=== PATIENT | female | born 1995 | race Caucasian/White ===

== ENCOUNTER 2017-02-19 19:11 | Inpatient (IN) | payer OTHER ==
[2017-02-19 19:11] VITALS: BMI 15.4
--- NOTE | 2017-02-19 19:51 | C.PDOC ---
History Of Present Illness A 22 y/o F with a Hx of atrial septal defect that was successfully repaired November 26 at [facility] [place] with no complications, c/o sudden onset chest discomfort with associated lightheadedness, SOB and palpitations that began today. After the surgery she reports she had an episode of chest pain which she did not seek medical attention for. She now had her second episode of chest discomfort. No exacerbating or alleviating factors. Denies fever, chills, abdominal pain, nausea, vomiting, diaphoresis, lower extremity pain, or any other complaints. Time Seen by Provider: 02/19/17 19:21 Chief Complaint (Nursing): Chest Pain History Per: Patient History/Exam Limitations: no limitations Onset/Duration Of Symptoms: Hrs, Sudden Onset Current Symptoms Are (Timing): Still Present Severity: Mild Quality: Other (Discomfort) Modifying Factors: None Exacerbating Factors: None Alleviating Factors: None Recent travel outside of the [place]: No Additional History Per: Patient Past Medical History Reviewed: Historical Data, Nursing Documentation, Vital Signs Vital Signs: Last Vital Signs Temp 98 F 02/19/17 19:17 Pulse 90 02/19/17 19:51 Resp 18 02/19/17 19:17 BP 107/78 02/19/17 19:17 Pulse Ox 100 02/19/17 19:54 - Medical History PMH: Denies: Chronic Kidney Disease Family History: States: Unknown Family Hx - Social History Hx Tobacco Use: No Hx Alcohol Use: No Hx Substance Use: No - Immunization History Hx Tetanus Toxoid Vaccination: Yes Hx Influenza Vaccination: No Hx Pneumococcal Vaccination: No Review Of Systems Except As Marked, All Systems Reviewed And Found Negative. Constitutional: Negative for: Fever, Chills, Sweats Cardiovascular: Positive for: Chest Pain (Discomfort), Palpitations, Light Headedness Respiratory: Positive for: Shortness of Breath Gastrointestinal: Negative for: Nausea, Vomiting, Abdominal Pain Musculoskeletal: Negative for: Leg Pain Physical Exam - Physical Exam Appears: Non-toxic, No Acute Distress Skin: Warm, Dry Head: Atraumatic, Normacephalic Oral Mucosa: Moist Neck: Supple Chest: Symmetrical, No Tenderness Cardiovascular: Rhythm Regular Respiratory: Normal Breath Sounds, No Accessory Muscle Use, No Rales, No Rhonchi , No Wheezing Gastrointestinal/Abdominal: Soft, No Tenderness Extremity: Normal ROM, No Pedal Edema, No Calf Tenderness, Capillary Refill (< 2secs), No Deformity, No Swelling Extremity: Bilateral: Normal Color And Temperature Neurological/Psych: Oriented x3, Normal Speech, Normal Cognition, Other (No focal deficit) Gait: Steady ED Course And Treatment - Laboratory Results Result Diagrams: 02/19/17 19:42 02/19/17 19:42 Lab Interpretation: No Acute Changes ECG: Interpreted By Me ECG Rhythm: Sinus Rhythm (with short PA interval) ECG Interpretation: No Acute Changes O2 Sat by Pulse Oximetry: 100 (RA) Pulse Ox Interpretation: Normal Reevaluation Time: 21:02 Reassessment Condition: Improved - Physician Consult Information Time Consulting Physician Contacted: 21:02 Physician Contacted: Finn Mott Outcome Of Conversation: Patient with history of recent atrial septal defect repair to be admitted on observation for evaluation of chest pain. Medical Decision Making Medical Decision Making: Impression: A 22 y/o F c/o sudden onset chest discomfort with associated lightheadedness and SOB that began today. Hx of atrial septal defect repaired November 26 at [facility] with no complications. Plans: * EKG * Blood work up * IV fluids * Reassess Disposition - Disposition Disposition: HOSPITALIZED Disposition Time: 21:03 Condition: STABLE - POA Present On Arrival: None - Clinical Impression Clinical Impression: Chest pain - Scribe Statement The provider has reviewed the documentation as recorded by the Scribkwabena king All medical record entries made by the Jenniferibkwabena were at my direction and personally dictated by me. I have reviewed the chart and agree that the record accurately reflects my personal performance of the history, physical exam, medical decision making, and the department course for this patient. I have also personally directed, reviewed, and agree with the discharge instructions and disposition.
[2017-02-19 19:52] LABS: BASO % 0.4 % (0.0-2.0); EOS # 0.1 K/uL (0.0-0.7); EOS % 1.7 % (0.0-4.0); HEMOGLOBIN 11.6 g/dL (11.0-16.0); LYMPH % 39.7 % (20.0-40.0); MEAN CELL VOLUME 85.3 fL (81.0-99.0); MEAN CORPUSCULAR HEMOGLOBIN 29.1 pg (27.0-31.0); MEAN CORPUSCULAR HGB CONC 34.1 g/dL (33.0-37.0); MEAN PLATELET VOLUME 8.6 fL (7.2-11.7); MONO # 0.5 K/uL (0.0-0.8); MONO % 7.3 % (0.0-10.0); NEUT # 3.8 K/uL (1.8-7.0); NEUT % 50.9 % (50.0-75.0); NRBC % 0.2 % (0.0-2.0); RBC 3.98 Mil/uL (3.80-5.20); RED CELL DISTRIBUTION WIDTH 13.4 % (11.5-14.5); WHITE BLOOD COUNT 7.4 K/uL (4.8-10.8)
[2017-02-19 20:04] LABS: AST/SGOT 24 U/L (14-36); GFR AFRICAN-AMERICAN > 60; GFR NON-AFRICAN AMERICAN > 60
[2017-02-19 20:05] LABS: ALB/GLOB RATIO 1.6 (1.0-2.1); ALT/SGPT 25 U/L (9-52); BLOOD UREA NITROGEN 16 mg/dL (7-17); CALCIUM 9.3 mg/dl (8.6-10.4)
[2017-02-20 06:17] LABS: CK-MB 0.53 ng/mL (0.0-3.38)
[2017-02-20 07:50] LABS: CK-MB 0.46 ng/mL (0.0-3.38)
--- NOTE | 2017-02-20 07:50 | CP.PCM.CON ---
<Nasir Vieira - Last Filed: 02/20/17 08:59> History of Present Illness - History of Present Illness History of Present Illness: Dr. Nasir Vieira PGY2 Cardiology Note for Dr. Sinha This patient is a 22yo F w/ a PMhx of s/p repair in November 2016 at [facility] who is coming to [facility] after she had right sided chest pain that came and went for one day. She states that she no longer has this chest pain. The chest pain was not associated with any other symptoms, no nausea, vomiting, diarrhea, headache, dizziness. The patient states she ran out of her medicine for 3 days, aspirin 81mg and Plavix 75mg because she has been so busy doing school at [employer]. 12-point review of systems is otherwise negative. Pmhx: ASD s/p repair november 2016 Surgical Hx: endovascular repair ASD in November 2016 at [facility] FamHx: HTN, DM, Asthma Meds: Aspirin 81mg, Plavix 75mg Allergies: None Social: Denies smoking, drinking, or illicit drug use. In [employer] school Review of Systems - EENT Ears: absent: Decreased Hearing Nose/Mouth/Throat: absent: Epistaxis - Cardiovascular Cardiovascular: absent: Acrocyanosis, Chest Pain, Chest Pain at Rest, Chest Pain with Activity, Claudication, Diaphoresis, Dyspnea, Dyspnea on Exertion, Edema, Irregular Heart Rhythm, Pain Radiating to Arm/Neck/Jaw, Leg Edema, Leg Ulcers, Lightheadedness, Orthopnea, Palpitations, Paroxysmal Nocturnal Dyspnea - Respiratory Respiratory: absent: Cough, Dyspnea - Gastrointestinal Gastrointestinal: absent: Abdominal Pain - Musculoskeletal Musculoskeletal: absent: Abnormal Gait, Arthralgias - Integumentary Integumentary: absent: Acne - Neurological Neurological: absent: Abnormal Gait - Psychiatric Psychiatric: absent: Anhedonia - Endocrine Endocrine: absent: Change in Body Appearance, Change in Libido - Hematologic/Lymphatic Hematologic: Easy Bleeding (patient states she has been having bruising on her upper extremities ) Past Patient History - Infectious Disease Hx of Infectious Diseases: None - Past Medical History & Family History Past Medical History?: Yes - Past Social History Smoking Status: Never Smoked - CARDIAC Hx Cardiac Disorders: Yes Other/Comment: HX: EXERTIONAL DYSPENA. HX: ATRIAL SEPTAL DEFECT. Cardiac catherization on November 2016. 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) - HEENT Hx HEENT Problems: No - RENAL Hx Chronic Kidney Disease: No - ENDOCRINE/METABOLIC Hx Endocrine Disorders: No - HEMATOLOGICAL/ONCOLOGICAL Hx Blood Disorders: No - INTEGUMENTARY Hx Dermatological Problems: No - MUSCULOSKELETAL/RHEUMATOLOGICAL Hx Musculoskeletal Disorders: No Hx Falls: No - GASTROINTESTINAL Hx Gastrointestinal Disorders: No - GENITOURINARY/GYNECOLOGICAL Hx Genitourinary Disorders: No - PSYCHIATRIC Hx Substance Use: No - SURGICAL HISTORY Hx Surgeries: Yes Other/Comment: Cardiac Catherization on November 2016 - ANESTHESIA Hx Anesthesia: Yes Hx Anesthesia Reactions: No Hx Malignant Hyperthermia: No Meds Allergies/Adverse Reactions: Allergies Allergy/AdvReac Type Severity Reaction Status Date / Time No Known Allergies Allergy Verified 02/19/17 19:23 - Medications Medications: Current Medications Aspirin (Ecotrin) 81 mg PO DAILY [facility] Last Admin: 02/20/17 00:47 Dose: 81 mg Clopidogrel Bisulfate (Plavix) 75 mg PO DAILY [facility] Last Admin: 02/20/17 00:47 Dose: 75 mg Enoxaparin Sodium (Lovenox) 40 mg SC DAILY [facility] Physical Exam - Constitutional Appears: Well, Non-toxic - Head Exam Head Exam: ATRAUMATIC - Eye Exam Eye Exam: EOMI Pupil Exam: NORMAL ACCOMODATION, PERRL - ENT Exam ENT Exam: Mucous Membranes Moist - Neck Exam Neck exam: Positive for: Full Rom, Normal Inspection. Negative for: Lymphadenopathy - Respiratory Exam Respiratory Exam: Clear to Auscultation Bilateral, NORMAL BREATHING PATTERN. absent: Rales, Rhonchi, Wheezes - Cardiovascular Exam Cardiovascular Exam: REGULAR RHYTHM, +S1, +S2 - GI/Abdominal Exam GI & Abdominal Exam: Normal Bowel Sounds, Soft. absent: Tenderness - Rectal Exam Rectal Exam: Deferred - Extremities Exam Extremities exam: Positive for: full ROM. Negative for: calf tenderness - Back Exam Back exam: NORMAL INSPECTION. absent: CVA tenderness (L), CVA tenderness (R) - Neurological Exam Neurological exam: Alert, Oriented x3 - Psychiatric Exam Psychiatric exam: Normal Affect, Normal Mood - Skin Skin Exam: Warm Results - Vital Signs Recent Vital Signs: Last Vital Signs Temp 98.0 F 02/19/17 23:40 Pulse 79 02/19/17 23:40 Resp 20 02/19/17 23:40 BP 94/62 L 02/19/17 23:40 Pulse Ox 99 02/19/17 23:40 - Labs Result Diagrams: 02/19/17 19:42 02/19/17 19:42 Labs: Laboratory Results - last 24 hr 02/20/17 04:56 Total Creatine Kinase 113 CK-MB (Mass) 0.53 Troponin I, Quant < 0.0120 Assessment & Plan - Assessment and Plan (Free Text) Assessment: This patient is a 22yo F admitted for R Sided Chest pain which has now resolved Right Sided Chest Pain; resolved -ELSA negative to date; ACS very unlikely -D Dimer negative; PE very unlikely ASD s/p repair -patient should continue with aspirin and plavix daily 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 If the echocardiogram is normal the patient should be able to go home. Thank you for this interesting consult. Case Discussed in detail with Dr. Bharath Vieira PGY2 Cardiology Note <Gage Sinha - Last Filed: 02/20/17 09:33> Meds - Medications Medications: Current Medications Aspirin (Ecotrin) 81 mg PO DAILY [facility] Last Admin: 02/20/17 00:47 Dose: 81 mg Clopidogrel Bisulfate (Plavix) 75 mg PO DAILY [facility] Last Admin: 02/20/17 00:47 Dose: 75 mg Enoxaparin Sodium (Lovenox) 40 mg SC DAILY [facility] Results - Vital Signs Recent Vital Signs: Last Vital Signs Temp 98.7 F 02/20/17 07:30 Pulse 79 02/20/17 07:30 Resp 20 02/20/17 07:30 BP 105/60 02/20/17 07:30 Pulse Ox 96 02/20/17 07:30 - Labs Result Diagrams: 02/19/17 19:42 02/19/17 19:42 Labs: Laboratory Results - last 24 hr 02/20/17 02/20/17 04:56 07:15 Total Creatine Kinase 113 128 CK-MB (Mass) 0.53 0.46 Troponin I, Quant < 0.0120 < 0.0120 Attending/Attestation - Attestation I have personally seen and examined this patient.: Yes I have fully participated in the care of the patient.: Yes I have reviewed all pertinent clinical information: Yes Notes (Text): 02/20/17 09:33 s/p asd repair continue plavix asa. D/c with follow up in office stable
--- NOTE | 2017-02-20 08:51 | RAD ---
HISTORY: chest pain COMPARISON: No prior. FINDINGS: LUNGS: Mild venous congestion. Bibasilar breast and nipple shadows. PLEURA: No significant pleural effusion identified, no pneumothorax apparent. CARDIOVASCULAR: Normal. OSSEOUS STRUCTURES: No significant abnormalities. VISUALIZED UPPER ABDOMEN: Normal. OTHER FINDINGS: None. IMPRESSION: Mild venous congestion.
[2017-02-20] MEDS: Enoxaparin 40 mg Syringe SC SCH (10:07)
--- NOTE | 2017-02-20 10:57 | CARD ---
APPROVED REPORT EKG Measurement Heart [id number] <Conclusion> Sinus rhythm with short CO Otherwise normal ECG
--- NOTE | 2017-02-20 18:48 | CP.PCM.HP ---
History of Present Illness - History of Present Illness History of Present Illness: This patient is a 22yo F w/ a PMhx of s/p repair in November [address] [facility] who is coming to [facility] after she had right sided chest pain that came and went for one day. She states that she no longer has this chest pain. The chest pain was not associated with any other symptoms, no nausea, vomiting, diarrhea, headache, dizziness. The patient states she ran out of her medicine for 3 days, aspirin 81mg and Plavix 75mg because she has been so busy doing school at [employer]. Patient denies fever, chills, cough, abd pain, N/V, HOFFMANN's, dyspnea and urinary Smx. Present on Admission - Present on Admission Any Indicators Present on Admission: No History of DVT/PE: No History of Uncontrolled Diabetes: No Urinary Catheter: No Decubitus Ulcer Present: No Review of Systems - Review of Systems All systems: reviewed and no additional remarkable complaints except (As mentioned in HPI) Past Patient History - Infectious Disease Hx of Infectious Diseases: None - Past Medical History & Family History Past Medical History?: Yes - Past Social History Smoking Status: Never Smoked - CARDIAC Hx Cardiac Disorders: Yes Other/Comment: HX: EXERTIONAL DYSPENA. HX: ATRIAL SEPTAL DEFECT. Cardiac catherization on November 2016. 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) - HEENT Hx HEENT Problems: No - RENAL Hx Chronic Kidney Disease: No - ENDOCRINE/METABOLIC Hx Endocrine Disorders: No - HEMATOLOGICAL/ONCOLOGICAL Hx Blood Disorders: No - INTEGUMENTARY Hx Dermatological Problems: No - MUSCULOSKELETAL/RHEUMATOLOGICAL Hx Musculoskeletal Disorders: No Hx Falls: No - GASTROINTESTINAL Hx Gastrointestinal Disorders: No - GENITOURINARY/GYNECOLOGICAL Hx Genitourinary Disorders: No - PSYCHIATRIC Hx Substance Use: No - SURGICAL HISTORY Hx Surgeries: Yes Other/Comment: Cardiac Catherization on November 2016 - ANESTHESIA Hx Anesthesia: Yes Hx Anesthesia Reactions: No Hx Malignant Hyperthermia: No Meds Allergies/Adverse Reactions: Allergies Allergy/AdvReac Type Severity Reaction Status Date / Time No Known Allergies Allergy Verified 02/19/17 19:23 Physical Exam - Head Exam Head Exam: NORMAL INSPECTION - Eye Exam Eye Exam: Normal appearance - ENT Exam ENT Exam: Mucous Membranes Moist - Neck Exam Neck exam: Positive for: Normal Inspection - Respiratory Exam Respiratory Exam: Clear to Auscultation Bilateral, NORMAL BREATHING PATTERN - Cardiovascular Exam Cardiovascular Exam: REGULAR RHYTHM, +S1, +S2 - GI/Abdominal Exam GI & Abdominal Exam: Normal Bowel Sounds, Soft - Extremities Exam Extremities exam: Positive for: normal inspection Results - Vital Signs Recent Vital Signs: Last Vital Signs Temp 98.3 F 02/20/17 16:38 Pulse 93 H 02/20/17 18:28 Resp 20 02/20/17 16:38 BP 91/56 L 02/20/17 18:28 Pulse Ox 100 02/20/17 16:38 - Labs Result Diagrams: 02/19/17 19:42 02/19/17 19:42 Labs: Laboratory Results - last 24 hr 02/20/17 02/20/17 04:56 07:15 Total Creatine Kinase 113 128 CK-MB (Mass) 0.53 0.46 Troponin I, Quant < 0.0120 < 0.0120 Assessment & Plan - Assessment and Plan (Free Text) Assessment: CP Hx of ASD Repair Pt is ruled out for ACS Cardiology consult appreciated Continue ASA and Plavix Family requesting
[2017-02-21] MEDS ORDERED: Lidocaine 4% (Laryng-O-Jet) Kit MM ONE ×2 (10:22→11:09)
[2017-02-21] MEDS ORDERED: Propofol 10 mg/ml Inj (20 ML) ONE ×2 (11:07)
[2017-02-21] MEDS ORDERED: Esmolol 100 mg/10ml Inj IV ONE (11:07)
[2017-02-21] MEDS ORDERED: Midazolam 2 MG/2 ML VIAL ONE (11:08)
--- NOTE | 2017-02-21 12:17 | CP.PCM.PN ---
Subjective - Date & Time of Evaluation Date of Evaluation: 02/21/17 Time of Evaluation: 12:14 - Subjective Subjective: Patient s/p PETERSON 1. Normal LV function 2. ASD closure device in place 3. RV/RA Dilated (Not new) No significant abnormality detected Chest pain likely from Gastrits Start Pepcid 20mg po bid Objective - Vital Signs/Intake and Output Vital Signs (last 24 hours): Temp Pulse Resp BP Pulse Ox 98.2 F 81 16 91/52 L 100 02/21/17 07:05 02/21/17 08:30 02/21/17 07:05 02/21/17 07:05 02/21/17 07:05 Intake and Output: 02/21/17 02/21/17 06:59 18:59 Intake Total 560 Balance 560 - Medications Medications: Current Medications Aspirin (Ecotrin) 81 mg PO DAILY [facility] Last Admin: 02/20/17 10:08 Dose: Not Given Clopidogrel Bisulfate (Plavix) 75 mg PO DAILY [facility] Last Admin: 02/20/17 10:09 Dose: Not Given Enoxaparin Sodium (Lovenox) 40 mg SC DAILY [facility] Last Admin: 02/20/17 10:07 Dose: 40 mg
--- NOTE | 2017-02-21 13:39 | CARD ---
APPROVED REPORT EXAM: Two-dimensional and M-mode echocardiogram with Doppler and color Doppler. Other Information Quality : AverageRhythm : NSR INDICATION Chest Pain ASD REPAIR M-Mode DIMENSIONS RVDd0.81 (2.1-3.2cm)Left Atrium (MM)2.32 (2.5-4.0cm) IVSd0.81 (0.7-1.1cm)Aortic Root2.13 (2.2-3.7cm) LVDd3.72 (4.0-5.6cm)Aortic Cusp Exc.1.38 (1.5-2.0cm) PWd0.75 (0.7-1.1cm)FS (%) 33 % LVDs2.50 (2.0-3.8cm)LVEF (%)62 (>50%) Aortic Valve AoV Peak Cgxbuzsh311.8cm/Cary Peak GR.10mmHgLVOT Peak Erqtxiwj668.0cm/s Mitral Valve MV E Aqcdssoh810.1cm/sMV A Fgqmarft65.2cm/sE/A ratio1.4 TDI E/Lateral E'0.0E/Medial E'0.0 Tricuspid Valve TR Peak Epvtuqvm814ax/sTR Peak Gr.87mfAkGROQ77rxTu LEFT VENTRICLE The left ventricle is normal size. There is normal left ventricular wall thickness. The left ventricular function is normal. The left ventricular ejection fraction is within the normal range. No regional wall motion abnormalities noted. The left ventricular diastolic function is normal. No left ventricle thrombus noted on this study. There is no ventricular septal defect visualized. There is no left ventricular aneurysm. There is no mass noted in the left ventricle. RIGHT VENTRICLE The right ventricle is normal size. There is normal right ventricular wall thickness. The right ventricular systolic function is normal. ATRIA The left atrium size is normal. The right atrium size is normal. There is Amplatz occluder present in the atrail interseptum Appears to be functioning well No residual shunt seen AORTIC VALVE The aortic valve is normal in structure and function. No aortic regurgitation is present. There is no aortic valvular stenosis. There is no aortic valvular vegetation. MITRAL VALVE The mitral valve is normal in structure and function. There is no evidence of mitral valve prolapse. There is no mitral valve stenosis. There is no mitral valve regurgitation noted. TRICUSPID VALVE The tricuspid valve is normal in structure and function. There is mild tricuspid regurgitation. Right ventricular systolic pressure is estimated at less than 30 mmHg. There is no tricuspid valve prolapse or vegetation. There is no tricuspid valve stenosis. PULMONIC VALVE The pulmonary valve is normal in structure and function. There is no pulmonic valvular regurgitation. There is no pulmonic valvular stenosis. GREAT VESSELS The aortic root is normal in size. The ascending aorta is normal in size. The pulmonary artery is normal. The IVC is normal in size and collapses >50% with inspiration. PERICARDIAL EFFUSION The pericardium appears normal. There is no pleural effusion. <Conclusion> The left ventricular function is normal. The left ventricular ejection fraction is within the normal range. No regional wall motion abnormalities noted. There is Amplatz occluder present in the atrail interseptum Appears to be functioning well No residual shunt seen
[2017-02-21] MEDS: Enoxaparin 40 mg Syringe SC SCH (14:01)
--- NOTE | 2017-02-21 15:30 | CP.PCM.PN ---
Subjective - Date & Time of Evaluation Date of Evaluation: 02/21/17 Time of Evaluation: 15:30 Objective - Vital Signs/Intake and Output Vital Signs (last 24 hours): Temp Pulse Resp BP Pulse Ox 98 F 64 18 92/58 L 95 02/21/17 12:40 02/21/17 12:40 02/21/17 12:40 02/21/17 12:40 02/21/17 12:40 Intake and Output: 02/21/17 02/21/17 06:59 18:59 Intake Total 560 Balance 560 - Medications Medications: Current Medications Aspirin (Ecotrin) 81 mg PO DAILY [facility] Last Admin: 02/21/17 14:01 Dose: 81 mg Clopidogrel Bisulfate (Plavix) 75 mg PO DAILY [facility] Last Admin: 02/21/17 14:00 Dose: 75 mg Enoxaparin Sodium (Lovenox) 40 mg SC DAILY [facility] Last Admin: 02/21/17 14:01 Dose: 40 mg Famotidine (Pepcid) 20 mg PO BID [facility]
[2017-02-21] MEDS: Benzocaine/Menthol (Cepacol) Lozenge MT PRN ×2 (16:33→21:59)
[2017-02-21] MEDS ORDERED: Sodium Chloride 0.9% 250 ML IV ONE (23:45)
[2017-02-22] MEDS: Sodium Chloride 0.9% 1,000 ML IV SCH ×2 (00:50→10:15)
[2017-02-22 01:24] LABS: SQUAMOUS EPITHIAL 5 /hpf (0-5); URINE BILIRUBIN NEGATIVE (NEGATIVE); URINE BLOOD 2+ (NEGATIVE); URINE CLARITY Clear (Clear); URINE COLOR Yellow (YELLOW); URINE GLUCOSE (UA) NORMAL (Normal); URINE LEUKOCYTE ESTERASE NEG Leu/uL (Negative); URINE NITRATE NEGATIVE (NEGATIVE); URINE PROTEIN NEGATIVE (NEGATIVE); URINE UROBILINOGEN NORMAL mg/dL (0.2-1.0)
[2017-02-22 07:25] LABS: HEMOGLOBIN 11.1 g/dL (11.0-16.0); MEAN CELL VOLUME 85.3 fL (81.0-99.0); MEAN CORPUSCULAR HGB CONC 32.8 g/dL (33.0-37.0); MEAN PLATELET VOLUME 9.2 fL (7.2-11.7); RBC 3.96 Mil/uL (3.80-5.20); RED CELL DISTRIBUTION WIDTH 12.9 % (11.5-14.5)
[2017-02-22 07:35] LABS: WHITE BLOOD COUNT 16.1 K/uL (4.8-10.8)
[2017-02-22 07:38] LABS: GFR AFRICAN-AMERICAN > 60; GFR NON-AFRICAN AMERICAN > 60
[2017-02-22 07:39] LABS: BLOOD UREA NITROGEN 8 mg/dL (7-17); CALCIUM 8.8 mg/dl (8.6-10.4)
[2017-02-22] MEDS: Enoxaparin 40 mg Syringe SC SCH (10:38)
--- NOTE | 2017-02-22 10:55 | CP.PCM.CON ---
History of Present Illness - History of Present Illness History of Present Illness: Patient seen and evaluated S/P ASD closure device C/O Chest pain Will check PETERSON in am Past Patient History - Infectious Disease Hx of Infectious Diseases: None - Past Medical History & Family History Past Medical History?: Yes - Past Social History Smoking Status: Never Smoked - CARDIAC Hx Cardiac Disorders: Yes Other/Comment: HX: EXERTIONAL DYSPENA. HX: ATRIAL SEPTAL DEFECT. Cardiac catherization on November 2016. 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) - HEENT Hx HEENT Problems: No - RENAL Hx Chronic Kidney Disease: No - ENDOCRINE/METABOLIC Hx Endocrine Disorders: No - HEMATOLOGICAL/ONCOLOGICAL Hx Blood Disorders: No - INTEGUMENTARY Hx Dermatological Problems: No - MUSCULOSKELETAL/RHEUMATOLOGICAL Hx Musculoskeletal Disorders: No Hx Falls: No - GASTROINTESTINAL Hx Gastrointestinal Disorders: No - GENITOURINARY/GYNECOLOGICAL Hx Genitourinary Disorders: No - PSYCHIATRIC Hx Substance Use: No - SURGICAL HISTORY Hx Surgeries: Yes Other/Comment: Cardiac Catherization on November 2016 - ANESTHESIA Hx Anesthesia: Yes Hx Anesthesia Reactions: No Hx Malignant Hyperthermia: No Meds Allergies/Adverse Reactions: Allergies Allergy/AdvReac Type Severity Reaction Status Date / Time No Known Allergies Allergy Verified 02/19/17 19:23 - Medications Medications: Current Medications Acetaminophen (Tylenol 325mg Tab) 650 mg PO Q6 PRN PRN Reason: Temperature Last Admin: 02/22/17 01:16 Dose: 650 mg Aspirin (Ecotrin) 81 mg PO DAILY [facility] Last Admin: 02/22/17 10:38 Dose: 81 mg Benzocaine/Menthol (Cepacol Sore Throat) 1 erika MT Q4 PRN PRN Reason: Sore Throat Last Admin: 02/21/17 21:59 Dose: 1 erika Clopidogrel Bisulfate (Plavix) 75 mg PO DAILY [facility] Last Admin: 02/22/17 10:38 Dose: 75 mg Enoxaparin Sodium (Lovenox) 40 mg SC DAILY [facility] Last Admin: 02/22/17 10:38 Dose: 40 mg Famotidine (Pepcid) 20 mg PO BID [facility] Last Admin: 02/22/17 10:38 Dose: 20 mg Ceftriaxone Sodium 1 gm/ (Sodium Chloride) 100 mls @ 100 mls/hr IVPB Q12H ALEJANDRO Last Admin: 02/22/17 01:17 Dose: 100 mls/hr Results - Vital Signs Recent Vital Signs: Last Vital Signs Temp 98.3 F 02/22/17 08:37 Pulse 80 02/22/17 08:37 Resp 20 02/22/17 08:37 BP 94/59 L 02/22/17 08:37 Pulse Ox 98 02/22/17 08:37 - Labs Result Diagrams: 02/22/17 07:16 02/22/17 07:16 Labs: Laboratory Results - last 24 hr 02/22/17 02/22/17 02/22/17 01:11 07:16 07:16 WBC 16.1 H D RBC 3.96 Hgb 11.1 Hct 33.8 L MCV 85.3 MCH 28.0 MCHC 32.8 L RDW 12.9 Plt Count 159 MPV 9.2 Sodium 139 Potassium 3.9 Chloride 105 Carbon Dioxide 22 Anion Gap 17 BUN 8 Creatinine 0.6 L Est GFR ( Amer) > 60 Est GFR (Non-Af Amer) > 60 Random Glucose 98 Calcium 8.8 Urine Color Yellow Urine Clarity Clear Urine pH 5.0 Ur Specific Mcintire 1.021 Urine Protein Negative Urine Glucose (UA) Normal Urine Ketones Negative Urine Blood 2+ H Urine Nitrate Negative Urine Bilirubin Negative Urine Urobilinogen Normal Ur Leukocyte Esterase Neg Urine WBC (Auto) 5 Urine RBC (Auto) 24 H Ur Squamous Epith Cells 5
--- NOTE | 2017-02-22 13:31 | CP.PCM.PN ---
Subjective - Date & Time of Evaluation Date of Evaluation: 02/22/17 Time of Evaluation: 07:15 Objective - Vital Signs/Intake and Output Vital Signs (last 24 hours): Temp Pulse Resp BP Pulse Ox 98.2 F 96 H 18 93/57 L 100 02/22/17 11:30 02/22/17 12:05 02/22/17 11:30 02/22/17 11:30 02/22/17 11:30 Intake and Output: 02/22/17 02/22/17 06:59 18:59 Intake Total 900 Balance 900 - Medications Medications: Current Medications Acetaminophen (Tylenol 325mg Tab) 650 mg PO Q6 PRN PRN Reason: Temperature Last Admin: 02/22/17 01:16 Dose: 650 mg Aspirin (Ecotrin) 81 mg PO DAILY ON LICENSE OF [facility] Last Admin: 02/22/17 10:38 Dose: 81 mg Benzocaine/Menthol (Cepacol Sore Throat) 1 erika MT Q4 PRN PRN Reason: Sore Throat Last Admin: 02/21/17 21:59 Dose: 1 erika Clopidogrel Bisulfate (Plavix) 75 mg PO DAILY ON LICENSE OF [facility] Last Admin: 02/22/17 10:38 Dose: 75 mg Enoxaparin Sodium (Lovenox) 40 mg SC DAILY ON LICENSE OF [facility] Last Admin: 02/22/17 10:38 Dose: 40 mg Famotidine (Pepcid) 20 mg PO BID ON LICENSE OF [facility] Last Admin: 02/22/17 10:38 Dose: 20 mg Ceftriaxone Sodium 1 gm/ (Sodium Chloride) 100 mls @ 100 mls/hr IVPB Q12H ON LICENSE OF [facility] Last Admin: 02/22/17 01:17 Dose: 100 mls/hr - Labs Labs: 02/22/17 07:16 02/22/17 07:16
--- NOTE | 2017-02-22 16:47 | CP.PCM.PN ---
Objective - Vital Signs/Intake and Output Vital Signs (last 24 hours): Temp Pulse Resp BP Pulse Ox 98.8 F 100 H 20 99/62 L 99 02/22/17 15:57 02/22/17 15:57 02/22/17 15:57 02/22/17 15:57 02/22/17 15:57 - Medications Medications: Current Medications Acetaminophen (Tylenol 325mg Tab) 650 mg PO Q6 PRN PRN Reason: Temperature Last Admin: 02/22/17 01:16 Dose: 650 mg Aspirin (Ecotrin) 81 mg PO DAILY [facility] Last Admin: 02/22/17 10:38 Dose: 81 mg Benzocaine/Menthol (Cepacol Sore Throat) 1 erika MT Q4 PRN PRN Reason: Sore Throat Last Admin: 02/21/17 21:59 Dose: 1 erika Clopidogrel Bisulfate (Plavix) 75 mg PO DAILY [facility] Last Admin: 02/22/17 10:38 Dose: 75 mg Enoxaparin Sodium (Lovenox) 40 mg SC DAILY [facility] Last Admin: 02/22/17 10:38 Dose: 40 mg Famotidine (Pepcid) 20 mg PO BID [facility] Last Admin: 02/22/17 10:38 Dose: 20 mg Ceftriaxone Sodium 1 gm/ (Sodium Chloride) 100 mls @ 100 mls/hr IVPB Q12H [facility] Last Admin: 02/22/17 13:51 Dose: 100 mls/hr
--- NOTE | 2017-02-22 21:52 | CP.PCM.PN ---
Subjective - Date & Time of Evaluation Date of Evaluation: 02/22/17 Time of Evaluation: 11:10 - Subjective Subjective: Patient seen and evaluated Had fever and sore throat Antibiotics started by PMD Will follow Objective - Vital Signs/Intake and Output Vital Signs (last 24 hours): Temp Pulse Resp BP Pulse Ox 98.8 F 100 H 20 99/62 L 99 02/22/17 15:57 02/22/17 15:57 02/22/17 15:57 02/22/17 15:57 02/22/17 15:57 - Medications Medications: Current Medications Acetaminophen (Tylenol 325mg Tab) 650 mg PO Q6 PRN PRN Reason: Temperature Last Admin: 02/22/17 01:16 Dose: 650 mg Aspirin (Ecotrin) 81 mg PO DAILY [facility] Last Admin: 02/22/17 10:38 Dose: 81 mg Benzocaine/Menthol (Cepacol Sore Throat) 1 erika MT Q4 PRN PRN Reason: Sore Throat Last Admin: 02/21/17 21:59 Dose: 1 erika Clopidogrel Bisulfate (Plavix) 75 mg PO DAILY [facility] Last Admin: 02/22/17 10:38 Dose: 75 mg Enoxaparin Sodium (Lovenox) 40 mg SC DAILY [facility] Last Admin: 02/22/17 10:38 Dose: 40 mg Famotidine (Pepcid) 20 mg PO BID [facility] Last Admin: 02/22/17 17:14 Dose: 20 mg Ceftriaxone Sodium 1 gm/ (Sodium Chloride) 100 mls @ 100 mls/hr IVPB Q12H [facility] Last Admin: 02/22/17 13:51 Dose: 100 mls/hr
--- NOTE | 2017-02-23 07:28 | CP.PCM.PN ---
Subjective - Date & Time of Evaluation Date of Evaluation: 02/23/17 Time of Evaluation: 07:28 Objective - Vital Signs/Intake and Output Vital Signs (last 24 hours): Temp Pulse Resp BP Pulse Ox 98.9 F 115 H 20 92/52 L 97 02/23/17 04:35 02/23/17 04:35 02/23/17 04:35 02/23/17 04:35 02/23/17 04:35 - Medications Medications: Current Medications Acetaminophen (Tylenol 325mg Tab) 650 mg PO Q6 PRN PRN Reason: Temperature Last Admin: 02/22/17 01:16 Dose: 650 mg Aspirin (Ecotrin) 81 mg PO DAILY [facility] Last Admin: 02/22/17 10:38 Dose: 81 mg Benzocaine/Menthol (Cepacol Sore Throat) 1 erika MT Q4 PRN PRN Reason: Sore Throat Last Admin: 02/21/17 21:59 Dose: 1 erika Clopidogrel Bisulfate (Plavix) 75 mg PO DAILY [facility] Last Admin: 02/22/17 10:38 Dose: 75 mg Enoxaparin Sodium (Lovenox) 40 mg SC DAILY [facility] Last Admin: 02/22/17 10:38 Dose: 40 mg Famotidine (Pepcid) 20 mg PO BID [facility] Last Admin: 02/22/17 17:14 Dose: 20 mg Ceftriaxone Sodium 1 gm/ (Sodium Chloride) 100 mls @ 100 mls/hr IVPB Q12H [facility] Last Admin: 02/23/17 02:16 Dose: 100 mls/hr
--- NOTE | 2017-02-23 08:58 | CARD ---
APPROVED REPORT EXAM: Two-dimensional and M-mode echocardiogram with Doppler and color Doppler. INDICATION Chest Pain ASD CLOSURE Mitral Valve E/A ratio0.0 TDI E/Lateral E'0.0E/Medial E'0.0 Reason For Test : evaluate ASD closure device PROCEDURE After obtaining informed consent, patient underwent transesophageal echo in the [employer]. Type of Sedation : Conscious Sedation Sedation was provided by anesthesiologist. Sedation was achieved with intravenously. The PETERSON was performed complications. Throughout the procedure, the blood pressure, pulse oximetry, cardiac rhythm, and rate were monitored. The patient tolerated the procedure without adverse effects. Recovery from conscious sedation was uneventful and vital signs were stable. LEFT VENTRICLE The left ventricle is normal size. The left ventricular function is normal. The left ventricular ejection fraction is within the normal range. There is normal LV segmental wall motion. No left ventricle thrombus noted on this study. There is no ventricular septal defect visualized. RIGHT VENTRICLE The right ventricle is normal size. The right ventricular systolic function is normal. ATRIA The left atrium size is normal. The right atrium size is normal. Amplotz Septal Occluder in place. No interatrial shunt noted AORTIC VALVE The aortic valve is normal in structure. No aortic regurgitation is present. There is no aortic valvular stenosis. There is no aortic valvular vegetation. MITRAL VALVE The mitral valve is normal in structure. There is no evidence of mitral valve prolapse. There is no mitral valve stenosis. There is no mitral valve regurgitation noted. TRICUSPID VALVE The tricuspid valve is normal in structure. There is no tricuspid valve regurgitation noted. There is no tricuspid valve stenosis. PULMONIC VALVE The pulmonary valve is normal in structure. There is no pulmonic valvular regurgitation. There is no pulmonic valvular stenosis. GREAT VESSELS The aortic root is normal in size. <Conclusion> Normal PETERSON findings Amplotzer Septal occluder in place. There is no inter atrial shunt
[2017-02-23] MEDS: Enoxaparin 40 mg Syringe SC SCH (09:53)
[2017-02-23 16:51] VITALS: O2SAT 98
[2017-02-23] MEDS: guaiFENesin 600 mg ER Tab PO SCH (20:24)
[2017-02-24 07:54] VITALS: RESP 18; TEMP 98.5
[2017-02-24 08:26] VITALS: BP 93/56
[2017-02-24] MEDS: guaiFENesin 600 mg ER Tab PO SCH (10:29)
[2017-02-24] MEDS: Enoxaparin 40 mg Syringe SC SCH (10:30)
--- NOTE | 2017-02-24 13:58 | CP.PCM.PN ---
Subjective - Date & Time of Evaluation Date of Evaluation: 02/24/17 Time of Evaluation: 10:00 - Subjective Subjective: Tere Yarbrough, PGY1, Progress Note for Dr. Sinha: Pt seen and examined at bedside. No acute events overnight. Pt c/o dry cough, denies fever, chills, n/v, cp, sob, diaphoresis, abdominal pain. Objective - Vital Signs/Intake and Output Vital Signs (last 24 hours): Temp Pulse Resp BP Pulse Ox 98.5 F 85 18 93/56 L 98 02/24/17 07:53 02/24/17 08:05 02/24/17 07:53 02/24/17 07:53 02/24/17 07:53 - Medications Medications: Current Medications Acetaminophen (Tylenol 325mg Tab) 650 mg PO Q6 PRN PRN Reason: Temperature Last Admin: 02/22/17 01:16 Dose: 650 mg Aspirin (Ecotrin) 81 mg PO DAILY [facility] Last Admin: 02/24/17 10:29 Dose: 81 mg Benzocaine/Menthol (Cepacol Sore Throat) 1 erika MT Q4 PRN PRN Reason: Sore Throat Last Admin: 02/21/17 21:59 Dose: 1 erika Clopidogrel Bisulfate (Plavix) 75 mg PO DAILY [facility] Last Admin: 02/24/17 10:29 Dose: 75 mg Enoxaparin Sodium (Lovenox) 40 mg SC DAILY [facility] Last Admin: 02/24/17 10:30 Dose: 40 mg Famotidine (Pepcid) 20 mg PO BID [facility] Last Admin: 02/24/17 10:30 Dose: 20 mg Guaifenesin (Mucinex La) 600 mg PO BID [facility] Last Admin: 02/24/17 10:29 Dose: 600 mg Ceftriaxone Sodium 1 gm/ (Sodium Chloride) 100 mls @ 100 mls/hr IVPB Q12H [facility] Last Admin: 02/24/17 02:10 Dose: 100 mls/hr - Constitutional Appears: No Acute Distress - Head Exam Head Exam: ATRAUMATIC, NORMOCEPHALIC - Eye Exam Eye Exam: PERRL - ENT Exam ENT Exam: Mucous Membranes Moist - Respiratory Exam Respiratory Exam: Clear to Ausculation Bilateral - Cardiovascular Exam Cardiovascular Exam: RRR, +S1, +S2. absent: Murmur - GI/Abdominal Exam GI & Abdominal Exam: Soft, Normal Bowel Sounds. absent: Tenderness - Neurological Exam Neurological Exam: Alert, Awake, Oriented x3 - Psychiatric Exam Psychiatric exam: Normal Mood - Skin Skin Exam: Dry, Intact, Warm Assessment and Plan - Assessment and Plan (Free Text) Assessment: 22F with PMH ASD s/p repair at [facility], admitted for right sided cp, currently resolved. EKG shows SR with short INGRIS. Trops negx3, CK-MB negx2. PETERSON showed EF 62%, amplotzer septal occluder in place, no interatrial shunt. Plan: Right Sided Chest Pain; resolved - EKG shows HR 98, SR with short AR. - ELSA neg. Unlikely ACS. - Transthoracic echo 02/20 shows EF 62%. + Amplatz occluder in atrial interseptum , functioning well. - PETERSON 02/21 shows amplotzer septal occluder in place. No interatrial shunt. - D Dimer negative; PE very unlikely ASD s/p repair -patient should continue with aspirin and plavix daily as per her dx board operator at [facility] - PETERSON 02/21 shows amplotzer septal occluder in place. No interatrial shunt. Will sign off case now. Please reconsult if needed. Case Discussed in detail with Dr. Sinha.
--- NOTE | 2017-02-24 14:24 | CP.PCM.PN ---
Objective - Vital Signs/Intake and Output Vital Signs (last 24 hours): Temp Pulse Resp BP Pulse Ox 98.5 F 85 18 93/56 L 98 02/24/17 07:53 02/24/17 08:05 02/24/17 07:53 02/24/17 07:53 02/24/17 07:53 - Medications Medications: Current Medications Acetaminophen (Tylenol 325mg Tab) 650 mg PO Q6 PRN PRN Reason: Temperature Last Admin: 02/22/17 01:16 Dose: 650 mg Aspirin (Ecotrin) 81 mg PO DAILY [facility] Last Admin: 02/24/17 10:29 Dose: 81 mg Benzocaine/Menthol (Cepacol Sore Throat) 1 erika MT Q4 PRN PRN Reason: Sore Throat Last Admin: 02/21/17 21:59 Dose: 1 erika Clopidogrel Bisulfate (Plavix) 75 mg PO DAILY [facility] Last Admin: 02/24/17 10:29 Dose: 75 mg Enoxaparin Sodium (Lovenox) 40 mg SC DAILY [facility] Last Admin: 02/24/17 10:30 Dose: 40 mg Famotidine (Pepcid) 20 mg PO BID [facility] Last Admin: 02/24/17 10:30 Dose: 20 mg Guaifenesin (Mucinex La) 600 mg PO BID [facility] Last Admin: 02/24/17 10:29 Dose: 600 mg Ceftriaxone Sodium 1 gm/ (Sodium Chloride) 100 mls @ 100 mls/hr IVPB Q12H [facility] Last Admin: 02/24/17 02:10 Dose: 100 mls/hr
[2017-02-24 15:08] VITALS: PULSE 101
== END 2017-02-24 17:00 | disposition home or self-care (01) | DRG 183 ==
LOC: C.ER 19:11 → C.9E 21:03 → C.6T 21:28 → OBSVTOIN 02-22 15:57
PROVIDERS: ADMIT Internal Medicine Critical Care Medicine; ATTEND Internal Medicine Critical Care Medicine
PROC: B246ZZ4 Ultrasonography of Right and Left Heart, Transesophageal (ICD-10-PCS; principal; 2017-02-22)
DX: K29.70 Gastritis, unspecified, without bleeding (principal); Q21.1 Atrial septal defect; Q24.0 Dextrocardia; Z98.890 Other specified postprocedural states

== ENCOUNTER 2017-12-30 17:47 | Emergency (ER) | payer OTHER ==
[2017-12-30 17:48] VITALS: BMI 15.4
[2017-12-30 17:54] VITALS: O2SAT 100
[2017-12-30] MEDS ORDERED: Lactated Ringer's 1,000 ML IVB STA (18:37)
[2017-12-30] MEDS ORDERED: Lactated Ringer's 1,000 ML ONE (18:52)
[2017-12-30 19:02] LABS: BASO # 0.1 K/uL (0.0-0.2); BASO % 0.5 % (0.0-2.0); EOS # 0.1 K/uL (0.0-0.7); EOS % 1.3 % (0.0-4.0); HEMOGLOBIN 12.2 g/dL (11.0-16.0); LYMPH # 2.8 K/uL (1.0-4.3); LYMPH % 25.8 % (20.0-40.0); MEAN CELL VOLUME 84.9 fL (81.0-99.0); MEAN CORPUSCULAR HEMOGLOBIN 28.4 pg (27.0-31.0); MEAN CORPUSCULAR HGB CONC 33.4 g/dL (33.0-37.0); MEAN PLATELET VOLUME 8.5 fL (7.2-11.7); MONO # 0.7 K/uL (0.0-0.8); MONO % 6.1 % (0.0-10.0); NEUT % 66.3 % (50.0-75.0); NRBC % 0.1 % (0.0-2.0); RBC 4.29 Mil/uL (3.80-5.20); RED CELL DISTRIBUTION WIDTH 13.7 % (11.5-14.5); WHITE BLOOD COUNT 10.7 K/uL (4.8-10.8)
[2017-12-30 19:17] LABS: ALB/GLOB RATIO 1.5 (1.0-2.1); ALBUMIN 4.4 g/dL (3.5-5.0); ALT/SGPT 56 U/L (9-52); AST/SGOT 41 U/L (14-36); BLOOD UREA NITROGEN 16 mg/dL (7-17); CALCIUM 9.5 mg/dl (8.6-10.4); GFR AFRICAN-AMERICAN > 60; GFR NON-AFRICAN AMERICAN > 60
--- NOTE | 2017-12-30 19:58 | C.PDOC ---
History Of Present Illness Pt received an IM injection of Vitamin B12 in her right arm yesterday. She c/o right arm pain today, as well as other nonspecific symptoms including diarrhea. Time Seen by Provider: 12/30/17 18:07 Chief Complaint (Nursing): Medical Clearance Past Medical History Reviewed: Historical Data, Nursing Documentation, Vital Signs Vital Signs: Last Vital Signs Temp 98.8 F 12/30/17 17:52 Pulse 78 12/30/17 19:30 Resp 20 12/30/17 19:30 BP 96/65 L 12/30/17 19:30 Pulse Ox 100 12/30/17 20:00 - Medical History Other PMH: Lyme disease Other Surgeries: ASD repair - [facility] Procedures ULTRASONOGRAPHY OF RIGHT AND LEFT HEART, TRANSESOPHAGEAL (02/22/17) Family History: States: Unknown Family Hx - Social History Hx Tobacco Use: No Hx Alcohol Use: No Hx Substance Use: No - Immunization History Hx Tetanus Toxoid Vaccination: Yes Hx Influenza Vaccination: No Hx Pneumococcal Vaccination: No Review Of Systems Except As Marked, All Systems Reviewed And Found Negative. Constitutional: Negative for: Fever, Weakness ENT: Negative for: Throat Swelling Cardiovascular: Positive for: Chest Pain Respiratory: Negative for: Hemoptysis Gastrointestinal: Positive for: Diarrhea. Negative for: Vomiting, Abdominal Pain Genitourinary: Negative for: Dysuria Musculoskeletal: Negative for: Neck Pain Skin: Negative for: Rash Neurological: Negative for: Weakness, Numbness Physical Exam - Physical Exam Appears: Non-toxic, No Acute Distress Skin: Normal Color, Warm, Dry, No Rash Head: Atraumatic, Normacephalic Eye(s): bilateral: Normal Inspection, PERRL, EOMI Oral Mucosa: Moist, No Drooling, No Trismus Throat: Normal Neck: Normal ROM, Supple Lymphatic: No Adenopathy Cardiovascular: Rhythm Regular Respiratory: Normal Breath Sounds, No Accessory Muscle Use Gastrointestinal/Abdominal: Soft, No Tenderness, No Distention Back: No CVA Tenderness Extremity: Normal ROM, Tenderness (some soft tissue tenderness at injection site , however no erythema or warmth), No Pedal Edema, No Calf Tenderness, No Deformity, No Swelling Extremity: Bilateral: Normal Color And Temperature Pulses: Right Radial: Normal Neurological/Psych: Oriented x3, Normal Motor, Normal Sensation ED Course And Treatment - Laboratory Results Result Diagrams: 12/30/17 18:59 12/30/17 18:59 Lab Interpretation: No Acute Changes Urine POC: Negative ECG: Interpreted By Me, Viewed By Me ECG Rhythm: Sinus Rhythm, Nonspecific Changes ECG Interpretation: No Acute Changes Rate From EC O2 Sat by Pulse Oximetry: 100 Pulse Ox Interpretation: Normal Progress Note: Pt feels better and wants to go home. Tolerating PO. Reassessment Condition: Improved Progress - Interventions Interventions:: Observation, Intravenous fluid - Medications Administered Intravenous: NSAID - Data Reviewed Data Reviewed: Lab, EKG, Old records - Patient Status Patient status: Mostly improved - Continuity of Care Discussed patient case with:: Patient, Family-HIPPA compliant, ED Nurse - Patient Plan Patient Plan: Discharge, F/U with PCP Disposition Counseled Patient/Family Regarding: Studies Performed, Diagnosis, Need For Followup - Disposition Referrals: Preet Mena DO [Staff Provider] - Disposition: HOME/ ROUTINE Disposition Time: 20:04 Condition: IMPROVED Additional Instructions: Drink plenty of fluids. Follow up with your doctor. Return to the ER if you develop fever, redness, vomiting, worsening of symptoms or if you have any other concerns. Forms: [facility] ([place]), General Discharge Instructions - Clinical Impression Clinical Impression: Injection site reaction, Diarrhea
[2017-12-30 20:39] VITALS: BP 102/65; PULSE 96; RESP 16; TEMP 98
--- NOTE | 2017-12-31 14:32 | CARD ---
APPROVED REPORT EKG Measurement Heart [id number] <Conclusion> Sinus rhythm with short UT Otherwise normal ECG
== END 2017-12-30 20:39 | disposition home or self-care (01) ==
LOC: C.ER 17:47
DX: T88.1XXA Other complications following immunization, not elsewhere classified, initial encounter (principal); R19.7 Diarrhea, unspecified
CPT/HCPCS: 80053; 84484; 85025; 93005; 96374; 99285; J1885; J7120